=== PATIENT | female | born 1985 | race African-American/Black ===

== ENCOUNTER 2018-07-04 14:06 | Emergency (ER) | payer MEDICAID ==
[~2018-07-04] VITALS: Ht 152.4 cm; Wt 95.0 kg
[2018-07-04 14:08] VITALS: BP 158/103
== END 2018-07-04 15:22 | disposition left against medical advice (07) ==
LOC: ER 14:13
DX: Z53.21 Procedure and treatment not carried out due to patient leaving prior to being seen by health care provider (principal)